=== PATIENT | female | born 1955 | race Caucasian/White ===

== ENCOUNTER 2018-06-26 08:19 | Outpatient (CLI) | payer OTHER ==
--- NOTE | 2018-07-02 10:33 | MMO ---
BILATERAL SCREENING MAMMOGRAMS: Date: 06/26/18 Comparison made to prior exams from 2017, 2015, and 2013. This patient's mammogram was interpreted with the assistance of computer-aided detection. FINDINGS: Scattered fibroglandular densities. Stable lymph nodes in the upper outer aspects of both breasts. No suspicious finding or interval change. Recommend one year follow-up. IMPRESSION: BIRADS 2: Benign Finding(s) POS: MARJORIE
== END 2018-06-26 08:20 | disposition home or self-care (01) ==
LOC: SCSMAMMO 08:19
PROVIDERS: ATTEND Family Medicine
DX: Z12.31 Encounter for screening mammogram for malignant neoplasm of breast (principal)
CPT/HCPCS: 77067

== ENCOUNTER 2019-01-28 05:25 | Outpatient (CLI) | payer OTHER ==
[2019-01-28 11:28] LABS: #Basophils 0.1 thou/uL (0.0-0.2); #Eosinphils 0.2 thou/uL (0.0-0.7); #Lymphocytes 2.1 thou/uL (1.20-3.40); #Monocytes 0.7 thou/uL (0.11-0.59); #Neutrophils 5.3 thou/uL (1.40-6.50); %Basophils 0.7 % (0.0-1.0); %Eosinophils 2.4 % (0.0-10.0); %Lymphocytes 25.2 % (21.0-51.0); %Monocytes 8.6 % (0.0-10.0); %Neutrophils 63.2 % (42.0-75.0); Hemoglobin 15.2 g/dL (12.0-16.0); Mean Corpuscular HGB CONC 34.9 g/dL (32.0-36.0); Mean Corpuscular Hemoglobin 31.1 pg (27.0-31.0); Mean Corpuscular Volume 89.1 fL (78.0-98.0); Mean Platelet Volume 7.7 fL (7.4-10.4); Platelet Count 256 thou/uL (130-400); RBC Distribution Width 12.1 % (11.5-14.5); Red Blood Cell (RBC) Count 4.88 mill/uL (4.20-5.40); White Blood Cell (WBC) Count 8.4 thou/uL (4.8-10.8)
== END 2019-01-28 05:26 | disposition home or self-care (01) ==
LOC: LABBT 05:25
PROVIDERS: ATTEND Orthopaedic Surgery Hand Surgery
DX: Z01.818 Encounter for other preprocedural examination (principal); G56.02 Carpal tunnel syndrome, left upper limb
CPT/HCPCS: 85025; 93005; 93010

== ENCOUNTER 2019-01-29 05:48 | Day surgery (SDC) | payer OTHER ==
[2019-01-28 10:31] VITALS: BMI 26.4
[2019-01-29] MEDS ORDERED: Fentanyl 100 MCG/2 ML VIAL ONE (06:20)
[2019-01-29] MEDS ORDERED: Bupivacaine PF 0.5% 30 ML VIAL ONE (06:32)
[2019-01-29] MEDS ORDERED: Sodium Chloride 0.9% 0 ML ONE (06:32)
[2019-01-29] MEDS ORDERED: Betamet Acet/Betamet Na Ph 30 MG/5 ML VIAL ONE (06:32)
[2019-01-29] MEDS ORDERED: Bacitracin Zinc Ointment 30 gm TUBE ONE (06:32)
[2019-01-29] MEDS ORDERED: Clindamycin/D5W 600 mg/50 ml Premix Bag ONE (07:16)
[2019-01-29] MEDS ORDERED: Ketorolac Tromethamine 30 MG/ML VIAL ONE ×2 (08:27→14:27)
[2019-01-29] MEDS ORDERED: PROPOFOL 200 MG/20 ML VIAL ONE (14:27)
[2019-01-29] MEDS ORDERED: Lidocaine 2% PF 5 ML VIAL ONE (14:27)
[2019-01-29] MEDS ORDERED: Dexamethasone 20 MG/5 ML VIAL ONE (14:27)
[2019-01-29] MEDS ORDERED: ePHEDrine 50 MG/ML VIAL ONE (14:27)
[2019-01-29] MEDS ORDERED: Ondansetron PF 4 MG/2 ML Vial ONE (14:27)
--- NOTE | 2019-01-30 07:50 | OP ---
DATE OF PROCEDURE: 01/29/2019 PREOPERATIVE DIAGNOSIS: Left carpal tunnel syndrome. POSTOPERATIVE DIAGNOSIS: Left carpal tunnel syndrome. FINDINGS: A 1 cm area of hourglass formation with 2 cm area of stippling and erythema, median nerve and center of the transverse carpal ligament. PROCEDURE PERFORMED: Carpal tunnel release/transverse carpal ligament release under direct visualization, open mini technique. TOURNIQUET TIME: 14 minutes. ESTIMATED BLOOD LOSS: 5 mL less. INJECTABLES: 1. 10 mL of 0.5% Marcaine. 2. Injection, carpal tunnel with Celestone 4 mL. INDICATION: Greater than 2 years of numbness and tingling. History and physical exam, and elective diagnosis are consistent with carpal tunnel syndrome, unremitting to conservative treatment. DESCRIPTION OF PROCEDURE: After successful general LMA technique, the limb was prepped and draped. The patient had time-out done appropriately. Tourniquet was then inflated to 250 mmHg pressure with exsanguination of the limb. A mini 2.5 cm incision was outlined beginning 5 cm distal to the volar wrist flexion crease and going to Cabrera cardinal line inline with the ring finger. Incision was carried through skin and subcutaneous tissue and at an area just slightly ulnar to the palmaris longus, we made a direct incision, centered at transverse carpal ligament. Then, we made this incision using combination of [place] blade and tenotomy scissors from here distal, and then under direct visualization, we were able to visualize the proximal one-half of transverse carpal ligament and released it using the same instrumentation. The visualization of the motor branch and distal branches showed them intact, there was the 2 cm area of erythema and stippling and in its central part, was approximately 1 cm area of hourglass formation. Via drip technique, 4 mL of Celestone in the wound, deflated the tourniquet, obtained hemostasis, closed the wound with interrupted 4-0 nylon. The patient left the operating room without evidence of anesthetic or operative complication. Job ID: [id number]
== END 2019-01-29 09:32 | disposition home or self-care (01) ==
LOC: SDC 05:48
PROVIDERS: ATTEND Orthopaedic Surgery Hand Surgery
PROC: 01N50ZZ Release Median Nerve, Open Approach (ICD-10-PCS; principal; 2019-01-29)
DX: G56.02 Carpal tunnel syndrome, left upper limb (principal); E03.9 Hypothyroidism, unspecified; E78.5 Hyperlipidemia, unspecified; E55.9 Vitamin D deficiency, unspecified; Z87.891 Personal history of nicotine dependence; Z79.899 Other long term (current) drug therapy; Z88.0 Allergy status to penicillin; Z98.890 Other specified postprocedural states
CPT/HCPCS: J0702; J1100; J1885; J2001; J2405; J2704; J3010; J3490; S0020